=== PATIENT | male | born 1985 | race Caucasian/White ===

== ENCOUNTER 2020-08-22 04:05 | Observation (INO) | payer BC ==
[~2020-08-22] VITALS: Ht 185.4 cm; Wt 181.8 kg
[2020-08-22 04:34] LABS: BASO # 0.1 (0.0-0.2); BASO % 0.8 % (0.0-2.0); EOS # 0.1 (0.0-0.7); EOS % 0.6 % (0-4.0); GRAN # 10.1 (1.4-6.5); GRAN % 72.6 % (42.2-75.2); HEMOGLOBIN 14.3 g/dl (13.5-18.0); LYMPH # 2.9 (1.2-3.4); LYMPH % 20.7 % (20.0-51.0); MEAN CELL VOLUME 84 fl (80.0-100.0); MEAN CORPUSCULAR HEMOGLOBIN 28 pg (27.0-31.0); MEAN CORPUSCULAR HGB CONC 33 g/dl (33.0-37.0); MEAN PLATELET VOLUME 9.6 fl (7.4-10.4); MONO # 0.7 (0.1-0.6); PLATELET COUNT 423 K/mm3 (130-400); RED BLOOD COUNT 5.12 M/mm3 (4.20-5.60); REDCELL DISTRIBUTION WIDTH-CV 12.8 % (11.5-14.5)
[2020-08-22 04:41] LABS: ALBUMIN 4.3 gm/dL (3.5-5.0); BILIRUBIN,TOTAL 0.4 mg/dL (0.0-1.0); CALCIUM 8.6 mg/dL (8.4-10.2); CREATININE, serum 0.74 (0.66-1.25)
[2020-08-22] MEDS ORDERED: GLUCOPHAGE1000 MG PO (10:46)
[2020-08-22] MEDS ORDERED: WELLBUTRIN SR150 M1 PO (10:47)
[2020-08-22] MEDS ORDERED: ZOLOFT 100MG100 MG PO (10:47)
[2020-08-22] MEDS ORDERED: PRINIVIL5 MG PO (10:48)
--- NOTE | 2020-08-22 11:05 | NUR ---
PATIENT ADMITED INTO ROOM 350 FROM ER. A&O. VSS. REPORTS RIGHT SIDE ABD PAIN THAT IS BETTER AFTER GETTING PAIN MEDS IN ER. NPO. AWARE PATIENT IS ADMITTED. PLAN IS TO TAKE PATIENT TO OR AROUND 1400. HAS NOT SEEN THE PATIENT YET, AWAITING ORDERS.
[2020-08-22] MEDS ORDERED: ADDERALL10 MG PO (11:15)
[2020-08-22 11:21] VITALS: BP 126/78; PULSE 83; TEMP 97.9
--- NOTE | 2020-08-22 11:45 | NUR ---
IV SITE COVERED. PATIENT GETTING INTO SHOWER BEFORE SURGERY AND THEN WILL CHANGE INTO HOSPITAL GOWN.
[2020-08-22] MEDS ORDERED: MOTRIN 600600 MG/TAB PO (17:02)
[2020-08-22] MEDS ORDERED: PERCOCET 325 MG1 TA2 PO (17:02)
[2020-08-22] MEDS ORDERED: AMOXICILLIN 8751 TAB PO (17:03)
[2020-08-22 17:30] VITALS: BP 151/83; PULSE 96; TEMP 97.7
--- NOTE | 2020-08-22 17:30 | NUR ---
PATIENT IS BACK IN ROOM. ORIENTED BUT VERY DROWSY. ABD LAP SITES X5 ARE CD&I. VSS. RESTING IN ROOM WITH CALL LIGHT IN REACH. NO FAMILY AT BEDSIDE AT THIS TIME.
[2020-08-22 17:32] VITALS: TEMP 96.8
[2020-08-22 17:45] VITALS: BP 152/84; PULSE 94
[2020-08-22 18:00] VITALS: BP 147/58; BP 147/88; PULSE 96
[2020-08-22 18:30] VITALS: BP 140/84; PULSE 85
--- NOTE | 2020-08-22 20:36 | NUR ---
Pt doing well. He has been up to the restroom and voided, reported pain was tolerable. He did tolerate a general diet, ate about half of his dinner. Pt reports that he would like to go home. is present in the room.
--- NOTE | 2020-08-22 21:17 | NUR ---
Reviewed discharge instructions with pt and his to include prescriptions and follow up appointments. INT removed from right hand. Pt escorted out at this time
== END 2020-08-22 21:19 | disposition home or self-care (01) ==
LOC: COL.ER 04:05 → SURG 09:42
PROVIDERS: Emergency Medicine; ADMIT Surgery
DX: K80.12 Calculus of gallbladder with acute and chronic cholecystitis without obstruction (principal); E11.22 Type 2 diabetes mellitus with diabetic chronic kidney disease; I12.9 Hypertensive chronic kidney disease with stage 1 through stage 4 chronic kidney disease, or unspecified chronic kidney disease; F32.9 Major depressive disorder, single episode, unspecified; N18.9 Chronic kidney disease, unspecified; E66.01 Morbid (severe) obesity due to excess calories; Z79.899 Other long term (current) drug therapy; Z79.84 Long term (current) use of oral hypoglycemic drugs
CPT/HCPCS: C9113; G0378; J0330; J0690; J0696; J1100; J1885; J2405; J2543; J2704; J3010; J7120; Q9967